=== PATIENT | male | born 1990 | race African-American/Black ===

== ENCOUNTER 2019-11-10 09:46 | Emergency (ER) | payer SELFPAY ==
[~2019-11-10] VITALS: Ht 175.3 cm; Wt 90.9 kg
[2019-11-10] MEDS ORDERED: BENZOCAINE/MENTHOL LOZENGE PO ONE (12:30)
[2019-11-10] MEDS ORDERED: BENZONATATE 100 MG CAPSULE PO ONE (12:30)
[2019-11-10 13:13] VITALS: BP 130/78
== END 2019-11-10 13:14 | disposition home or self-care (01) ==
LOC: EMS 09:49
DX: J06.9 Acute upper respiratory infection, unspecified (principal); F17.210 Nicotine dependence, cigarettes, uncomplicated; F12.90 Cannabis use, unspecified, uncomplicated
CPT/HCPCS: 93005; 99406

== ENCOUNTER 2019-11-16 08:43 | Emergency (ER) | payer SELFPAY ==
[~2019-11-16] VITALS: Ht 175.3 cm; Wt 200.0 kg
[2019-11-16 08:45] VITALS: BP 128/73
== END 2019-11-16 09:25 | disposition home or self-care (01) ==
LOC: EMS 08:45
DX: B34.9 Viral infection, unspecified (principal); F17.210 Nicotine dependence, cigarettes, uncomplicated; F12.90 Cannabis use, unspecified, uncomplicated
CPT/HCPCS: 99406